=== PATIENT | female | born 2000 | race Asian ===

== ENCOUNTER 2018-02-20 11:42 | Emergency (ER) | payer BC ==
[~2018-02-20] VITALS: Ht 154.9 cm; Wt 49.9 kg
--- NOTE | 2018-02-20 11:42 | NUR ---
PT JOSEA ALS TO BED 1
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
[2018-02-20 11:45] VITALS: BP 104/65
[2018-02-20] MEDS ORDERED: MIDAZOLAM 2 MG/2 ML VIAL IV ONE (12:20)
[2018-02-20] MEDS ORDERED: fentaNYL 0.05 MG/ML VIAL IVP ONE (12:20)
[2018-02-20] MEDS ORDERED: fentaNYL 0.05 MG/ML VIAL ONE ×2 (12:21→12:52)
[2018-02-20] MEDS ORDERED: MIDAZOLAM 2 MG/2 ML VIAL ONE (12:23)
--- NOTE | 2018-02-20 12:32 | NUR ---
SAID HOLD VERSED MEDICATION TILL AFTER X-RAY
[2018-02-20] MEDS ORDERED: PROPOFOL 200 MG/20 ML VIAL IV ONE (13:20)
--- NOTE | 2018-02-20 14:41 | NUR ---
CONSCIOUS SEDATION STARTED BY ER STAFF FOR SHOULDER REDUCTION
[2018-02-20 16:31] VITALS: BP 115/70
--- NOTE | 2018-02-20 16:31 | NUR ---
Patient discharged with v/s stable. Written and verbal after care instructions given and explained. Patient alert, oriented and verbalized understanding of instructions. Ambulatory with steady gait. All questions addressed prior to discharge. ID band removed. Patient advised to follow up with PMD. Rx of NORCO AND MOTRIN given. Patient educated on indication of medication including possible reaction and side effects. Opportunity to ask questions provided and answered.
== END 2018-02-20 16:31 | disposition home or self-care (01) ==
LOC: MED 11:42
DX: S43.014A Anterior dislocation of right humerus, initial encounter (principal); Y04.0XXA Assault by unarmed brawl or fight, initial encounter; Y93.89 Activity, other specified; Y99.8 Other external cause status; Y92.89 Other specified places as the place of occurrence of the external cause
CPT/HCPCS: 23650; 73030; 96374; 99152; 99285; J2250; J2704; J3010; Q0092; 96375